=== PATIENT | female | born 1995 | race Caucasian/White ===

== ENCOUNTER 2017-04-18 09:24 | Emergency (ER) | payer OTHER ==
[2017-04-18] MEDS ORDERED: IBUPROFEN 600 MG TAB PO ONE (10:20)
[2017-04-18] MEDS ORDERED: DEXAMETHASONE 4 MG TAB PO ONE (10:20)
[2017-04-18] MEDS ORDERED: AMOXICILLIN/CLAVULANATE POT 875/125 MG TAB PO ONE (10:20)
--- NOTE | 2017-04-18 10:20 | EDPHY ---
H & P Stated Complaint: fever st exudative tonsillar area Source: Patient Exam Limitations: No limitations - Personal History LMP (Females 10-55): Now Current Tetanus/Diphtheria Vaccine: Yes - Medical/Surgical History Hx Asthma: No Hx Chronic Respiratory Disease: No Hx Diabetes: No Hx Cardiac Disease: No Hx Renal Disease: No Hx Cirrhosis: No Hx Alcoholism: No Hx HIV/AIDS: No Hx Splenectomy or Spleen Trauma: No Other PMH: denies - Social History Smoking Status: Never smoked HPI/ROS: CHIEF COMPLAINT: Sore throat, fever, body ache HISTORY OF PRESENT ILLNESS: Patient complains of severe sore throat, high fever at home and generalized malaise. Gradual onset 2 nights ago. Worsened yesterday. Constant duration. No headache. No neck pain or stiffness. No cough. No shortness of breath. No abdominal urinary complaints. No recent travel. No known sick contacts. She feels as though she has strep infection. No other associated complaints or modifying factors. REVIEW OF SYSTEMS: Ten systems reviewed and are negative unless otherwise noted in the HPI PAST MEDICAL HISTORY: Denies any medical history SOCIAL HISTORY: Nonsmoker. Works and goes to school in [place]. FAMILY HISTORY: Noncontributory EXAMINATION General Appearance: Alert, no distress Head: normocephalic, atraumatic Eyes: Pupils equal and round, no conjunctival pallor or injection ENT, Mouth: Mucous membranes moist. There is significant posterior erythema and tonsillar exudate. The uvula is midline. There is no asymmetry of the pharynx. There is no appearance of peritonsillar abscess. Neck: Normal inspection, supple, non-tender dear tender anterior cervical lymphadenopathy. Respiratory: Lungs are clear to auscultation. No wheezing, rhonchi or crackles Cardiovascular: Regular rate and rhythm. No murmur. Pulses intact distally. Gastrointestinal: Abdomen is soft and nontender Skin: Warm and dry, no rash. No petechiae or purpura Extremities: Nontender, no pedal edema Psychiatric: Mood and affect normal DIFFERENTIAL DIAGNOSES: Including but not limited to strep pharyngitis, strep tonsillitis, viral pharyngitis, viral tonsillitis, infectious mononucleosis MDM: 10:25 a.m. Acute tonsillitis that is exudative. Clinically she presents as strep pharyngitis and strep tonsillitis. Rapid strep is negative, but I will treat her presumptively. Decadron, Augmentin are ordered here. Discharged home with Augmentin and short course of pain medication. I do not appreciate any evidence of peritonsillar abscess. She is in no acute distress with normal vital signs. Return here for any worsening of symptoms, asymmetry of the pharynx by her on examination, or difficulty swallowing. She is to follow up with primary care physician, [facility] or here on Thursday for re- evaluation. She is discharged home stable condition. SUPERVISION: This patient was independently evaluated without direct examination by the attending physician. Case was discussed with attending physician. (Ervin Rankin ) Constitutional: Initial Vital Signs Temperature (C) 98.4 F 04/18/17 09:26 Heart Rate 95 04/18/17 09:26 Respiratory Rate 17 04/18/17 09:26 Blood Pressure 114/67 04/18/17 09:26 O2 Sat (%) 97 04/18/17 09:26 O2 Delivery Mode Room Air Allergies/Adverse Reactions: No Known Allergies Allergy (Verified 04/18/17 09:25) Home Medications: Medication Instructions Recorded Amoxicillin/Clavulanate Pot 875 mg PO BID #20 tab 04/18/17 [Augmentin 875 MG TAB (*)] Hydrocodone/APAP 5/325 [[place] 1 - 2 tab PO Q4H PRN #11 tab 04/18/17 5/325 (*)] Nuvaring Vaginal Ring 04/18/17 Medical Decision Making ED Course/Re-evaluation: I did not see this patient while she was in the emergency department. However her care was discussed with the PA while the patient was in the department. I agree with treatment plan and management (Romeo Panda) - Data Points Laboratory Results: 04/18/17 04/18/17 Unknown 09:28 Group A Strep Screen NEGATIVE (NEGATIVE) Group A Strep DNA Pending Medications Given: Discontinued Medications Amoxicillin/Clavulanate Potassium (Augmentin 875mg) 875 mg PO EDNOW ONE PRN Reason: Protocol Stop: 04/18/17 10:21 Last Admin: 04/18/17 10:43 Dose: 875 mg Dexamethasone (Decadron) 8 mg PO EDNOW ONE Stop: 04/18/17 10:21 Last Admin: 04/18/17 10:42 Dose: 8 mg Ibuprofen (Motrin) 600 mg PO EDNOW ONE Stop: 04/18/17 10:21 Last Admin: 04/18/17 10:41 Dose: 600 mg Departure - Departure Disposition: Home, Routine, Self-Care Clinical Impression: Strep tonsillitis, Strep pharyngitis Condition: Good Instructions: Strep Throat (ED), Tonsillitis (ED) Additional Instructions: 1. Antibiotics as prescribed to completion 2. Ibuprofen 600-800 mg every 8 hours as needed for pain 3. Short course of pain medication as prescribed as needed 4. Increase fluid intake 5. Return to the ER for any worsening pain, asymmetry of the throat, difficulty swallowing, persistent fever Referrals: NONE *PRIMARY CARE P,. [Primary Care Provider] - As per Instructions Gris Pond MD [[facility] [place] Primary Care Provider] - As per Instructions Stand Alone Forms: Work Excuse Prescriptions: Amoxicillin/Clavulanate Pot [Augmentin 875 MG TAB (*)] 875 mg PO BID #20 tab Hydrocodone/APAP 5/325 [[place] 5/325 (*)] 1 - 2 tab PO Q4H PRN #11 tab PRN Reason: Pain, Moderate
[2017-04-18 11:06] VITALS: BP 128/76; PULSE 78; RESP 16; TEMP 98.6; O2SAT 98
== END 2017-04-18 11:06 | disposition home or self-care (01) ==
DX: J03.00 Acute streptococcal tonsillitis, unspecified (principal)